=== PATIENT | female | born 2000 | race Caucasian/White ===

== ENCOUNTER 2025-02-04 18:02 | Emergency (ER) | payer OTHER ==
[~2025-02-04] VITALS: Ht 165.1 cm; Wt 81.8 kg
[2025-02-04 18:29] LABS: APPEARANCE,URINE HAZY (CLEAR); GLUCOSE, URINE (UA) NEGATIVE (NEGATIVE); LEUKOCYTE ESTERASE ,URINE MODERATE (NEGATIVE); NITRATE,URINE POSITIVE (NEGATIVE); OCCULT BLOOD,URINE LARGE (NEGATIVE); SPECIFIC GRAVITIY, URINE 1.025 (1.003-1.030)
[2025-02-04 18:42] LABS: SQUAMOUS EPITHELIAL CELL,UR Rare /LPF (None Seen)
[2025-02-04] MEDS ORDERED: NITR-104 PO (19:22)
[2025-02-04 19:29] VITALS: PULSE 72
[2025-02-04 20:04] VITALS: BP 123/62; RESP 16; TEMP 98.4; O2SAT 100
== END 2025-02-04 22:00 | disposition still patient (30) ==
LOC: EMS 18:20
DX: N39.0 Urinary tract infection, site not specified (principal); R31.0 Gross hematuria
CPT/HCPCS: 81001; 87086; 99283